=== PATIENT | male | born 1990 | race Caucasian/White ===

== ENCOUNTER 2022-11-09 14:14 | Outpatient (CLI) | payer OTHER, SELFPAY | END 2022-11-09 14:15 | disposition home or self-care (01) | PROVIDERS: PCP Physician Assistant Medical; Visit Provider Physician Assistant Medical | DX: Z00.00 Encounter for general adult medical examination without abnormal findings (principal); Z13.6 Encounter for screening for cardiovascular disorders; Z13.1 Encounter for screening for diabetes mellitus | CPT/HCPCS: 80053; 80061 ==

== ENCOUNTER 2023-08-20 16:32 | Outpatient (CLI) | payer OTHER, SELFPAY ==
--- NOTE | 2023-08-20 17:00 | US_ITS ---
Patient: FOREIGN BOLTON Facility:?[facility] Patient ID:?[id number] Site Patient ID:?[id number]. Site :?1990 Study:?-ST Neck -08/20/2023 5:56:46 PM Ordering Physician:?Luanne Kulkarni Final Report: INDICATION: Palpable lymph node. History of lymphoma 2 years ago, in remission. TECHNIQUE: Focused ultrasound of the soft tissues of the right-sided neck. Grayscale and color Doppler images. FINDINGS: 2.4 x 0.7 x 1.2 cm lymph node with preserved fatty hilum in the right neck corresponding to the patient`s lump. Suspect this is reactive, however given patient`s history of lymphoma, short interval clinical followup or fine-needle aspiration recommended. Dictated by Kody Gerber MD @ 08/21/2023 2:19:37 PM Signed by:?Kody Gerber MD @08/21/2023 2:19:37 PM (Electronic Signature)
== END 2023-08-20 16:33 | disposition home or self-care (01) ==
LOC: US 16:32
PROVIDERS: PCP Physician Assistant Medical; Visit Provider Family Medicine
DX: C85.90 Non-Hodgkin lymphoma, unspecified, unspecified site (principal); R59.9 Enlarged lymph nodes, unspecified; R59.1 Generalized enlarged lymph nodes
CPT/HCPCS: 76536

== ENCOUNTER 2023-09-11 09:00 | Outpatient (CLI) | payer OTHER, SELFPAY ==
--- NOTE | 2023-09-11 09:15 | US_ITS ---
Patient: FOREIGN BOLTON Facility:?[facility] Patient ID:?[id number] Site Patient ID:?[id number]. Site :?1990 Study:?US-ST Neck Right Dr. Carney to read-09/11/2023 10:47:38 AM Ordering Physician:Umesh Chambers Final Report: ULTRASOUND-GUIDED RIGHT NECK LYMPH NODE BIOPSY CLINICAL HISTORY: prominent lymph node. History of lymphoma COMPARISON STUDIES: Ultrasound 08/20/2023 TECHNIQUE: Real-time ultrasound with image documentation was used for targeting the lymph node lesion. Core biopsy specimens were obtained using an automated gun with a 18-gauge biopsy needle. CONSENT and TIME OUT: The procedure, risks, and alternatives were explained to the patient and a consent was signed. Parrott Protocol was followed including pre-procedure verification that relevant information/documentation was available, reviewed and properly matched to the patient; consent accurate and complete; and equipment and supplies available. Time Out was conducted just prior to starting procedure to verify the four required elements: patient identity, correct side/site marked (if applicable), procedure, relevant images/results properly labeled and displayed (if applicable). PROCEDURE: The patient was positioned supine on the ultrasound table. The right side of the neck was prepped with ChloraPrep. 8 cc of 1 percent lidocaine used for local anesthesia. The specimens were placed in 10% formalin and sent to the pathology department. Pressure was held on the biopsy site until all bleeding subsided. LATERALITY: Right neck LESION: Mildly prominent right cervical lymph node measuring 2.4 x 0.7 x 1.2 cm SUSPICION FOR MALIGNANCY: Low, probably reactive NUMBER OF SAMPLES: 7 IMPRESSION: Ultrasound-guided lymph node biopsy right neck. Dictated by Blake Carney MD @ 09/11/2023 1:27:01 PM Signed by:?Blake Carney MD @09/11/2023 1:27:01 PM (Electronic Signature)
== END 2023-09-11 09:01 | disposition home or self-care (01) ==
LOC: US 09:01
PROVIDERS: PCP Physician Assistant Medical; Visit Provider Physician Assistant Medical
DX: C85.90 Non-Hodgkin lymphoma, unspecified, unspecified site (principal)
CPT/HCPCS: 10005; 88305; 88341; 88342; A4649